=== PATIENT | female | born 1995 | race Caucasian/White ===

== ENCOUNTER 2019-08-16 13:18 | Emergency (ER) | payer OTHER ==
--- NOTE | 2019-08-16 14:08 | ED ---
HPI Chest Pain - History of Current Complaint Chief Complaint: EDVaginalBleeding Time Seen by Provider: 08/16/19 13:37 Pain Intensity: 1 - Allergy/Home Medications Allergies/Adverse Reactions: Allergies Allergy/AdvReac Type Severity Reaction Status Date / Time amoxicillin Allergy Rash Verified 08/16/19 13:23 Home Medications: Home Medications Vitamin TAB* 1 tab PO DAILY 08/16/19 [History Confirmed 08/16/19] PMH/Surg Hx/FS Hx/Imm Hx Endocrine/Hematology History: Reports: Hx Diabetes Sensory History: Denies: Hx Legally Blind, Hx Deafness Opthamlomology History: Denies: Hx Legally Blind EENT History: Denies: Hx Deafness Psychiatric History: Denies: Hx Eating Disorder - Surgical History Surgery Procedure, Year, and Place: Denies Infectious Disease History: No Infectious Disease History: Denies: Traveled Outside the [place] in Last 30 Days - Family History Known Family History: Negative: Cardiac Disease, Hypertension, Diabetes - Social History Alcohol Use: Daily Alcohol Amount: 6 shots of whiskey daily Hx Substance Use: Yes Substance Use Type: Reports: Marijuana Hx Tobacco Use: No Smoking Status (MU): Never Smoked Tobacco Review of Systems Positive: Chills, Skin Diaphoresis Positive: Chest Pain - Left back Positive: Shortness Of Breath Musculoskeletal: Other - Left arm pain, numbness/tingling Neurological: Other - Numbness/tingling of left arm All Other Systems Reviewed And Are Negative: Yes Physical Exam Triage Information Reviewed: Yes Vital Signs On Initial Exam: Initial Vitals Temp Pulse Resp BP Pulse Ox 98.7 F 77 16 136/85 100 08/16/19 13:20 08/16/19 13:20 08/16/19 13:20 08/16/19 13:20 08/16/19 13:20 Vital Signs Reviewed: Yes Procedures - Sedation Patient Received Moderate/Deep Sedation with Procedure: No Diagnostics - Vital Signs Vital Signs Temp Pulse Resp BP Pulse Ox 08/16/19 13:20 98.7 F 77 16 136/85 100 - Laboratory Lab Statement: Any lab studies that have been ordered have been reviewed, and results considered in the medical decision making process. Chest Pain Course/Dx - Course Course Of Treatment: This patient is a 50 year old M with a history of DM BIBA to ED via EMS with a chief complaint of chest pain that radiates down the left arm since 1250 today. Discharge ED - Discharge Plan Referrals: [facility] [Primary Care Provider] - - Attestation Statements Document Initiated by Scribe: Yes Documenting Scribe: Zenon Oliveira Provider For Whom Scribe is Documenting (Include Credential): Jose Hernandez MD Scribe Attestation: IZenon, scribed for Jose Hernandez MD on 08/16/19 at 1404.
[2019-08-16 14:11] LABS: BUN/Creatinine Ratio 18.6 (8-20); Calcium 9.5 mg/dL (8.6-10.3); EGFR African American 151.5 (>60); EGFR Non-African American 125.2 (>60); Potassium 3.7 mmol/L (3.5-5.0)
[2019-08-16 14:18] LABS: HCG Pregnancy 525.18 mIU/mL
[2019-08-16 14:51] LABS: ABS Basophils 0.1 10^3/ul (0-0.2); ABS Eosinophils 0.2 10^3/ul (0-0.6); ABS Lymphocytes 1.5 10^3/ul (1.0-4.8); ABS Monocytes 0.4 10^3/ul (0-0.8); ABS Neutrophils 2.3 10^3/ul (1.5-7.7); Eosinophil % 5.1 %; Hematocrit 39 % (35-47); Hemoglobin 13.1 g/dL (12.0-16.0); Lymphocyte % 33.4 %; Mean Corpuscular HGB Conc 34 g/dL (31-36); Mean Corpuscular Hemoglobin 31 pg (27-31); Mean Corpuscular Volume 92 fL (80-97); Mean Platelet Volume 8.5 fL (7.4-10.4); Nucleated Red Blood Cells % 0.1; Platelet Count 263 10^3/uL (150-450); Red Blood Count 4.22 10^6 /uL (3.70-4.87); Red Cell Distribution Width 13 % (10-15); White Blood Count 4.4 10^3/uL (3.5-10.8)
--- NOTE | 2019-08-16 15:30 | ED ---
GI/ HPI - HPI Summary HPI Summary: This patient is a 24 year old F who is 6 weeks 5 days by LMP presenting to ED with a chief complaint of vaginal bleeding with clots since 1 hour [employer]. This is her second ; her first was terminated by D& C (A1). Patient reports low back pain. She has not had an ultrasound for this before. Patient denies fever. The patient rates the pain 1/10 in severity. Symptoms aggravated by nothing. Symptoms alleviated by nothing. Patient denies any bleeding disorders in herself or her family. Patient is adopted, but her biological father reports he and his family are healthy and do not have bleeding disorders. She does not have contact with her biological mother. - History of Current Complaint Chief Complaint: EDVaginalBleeding Time Seen by Provider: 08/16/19 13:37 Stated Complaint: VAGINAL BLEEDING-6 WEEKS Hx Obtained From: Patient Onset/Duration: Started Hours Ago - 1 hour [employer], Still Present Timing: Constant Severity: Mild Current Severity: Mild Vaginal Bleeding Description: Clots Pain Intensity: 1 Associated Signs and Symptoms: Negative: Fever Additional Signs & Symptoms: Positive: Vaginal Bleeding Aggravating Factor(s): Nothing Alleviating Factor(s): Nothing - Allergy/Home Medications Allergies/Adverse Reactions: Allergies Allergy/AdvReac Type Severity Reaction Status Date / Time amoxicillin Allergy Rash Verified 08/16/19 13:23 Home Medications: Home Medications Vitamin TAB* 1 tab PO DAILY 08/16/19 [History Confirmed 08/16/19] PMH/Surg Hx/FS Hx/Imm Hx Endocrine/Hematology History: Denies: Hx Diabetes Cardiovascular History: Denies: Hx Hypercholesterolemia, Hx Hypertension Sensory History: Denies: Hx Legally Blind, Hx Deafness Opthamlomology History: Denies: Hx Legally Blind EENT History: Denies: Hx Deafness Psychiatric History: Denies: Hx Eating Disorder - Surgical History Surgery Procedure, Year, and Place: Denies - Immunization History Immunizations Up to Date: Yes Infectious Disease History: No Infectious Disease History: Denies: Traveled Outside the [place] in Last 30 Days - Family History Known Family History: Negative: Cardiac Disease, Hypertension, Diabetes - Social History Alcohol Use: None Hx Substance Use: No Substance Use Type: Reports: None Hx Tobacco Use: No Smoking Status (MU): Never Smoked Tobacco Review of Systems Negative: Fever Genitourinary: Other - Vaginal bleeding All Other Systems Reviewed And Are Negative: Yes Physical Exam - Summary Physical Exam Summary: Constitutional: Well-developed, Well-nourished, Alert. (-) Distressed Skin: Warm, Dry HENT: Normocephalic; Atraumatic Eyes: Conjunctiva normal Neck: Musculoskeletal ROM normal neck. (-) JVD, (-) Stridor, (-) Tracheal deviation Cardio: Rhythm regular, rate normal, Heart sounds normal; Intact distal pulses; The pedal pulses are 2+ and symmetric. Radial pulses are 2+ and symmetric. Pulmonary/Chest wall: Effort normal. (-) Respiratory distress, (-) Wheezes, (-) Rales Abd: Soft, (-) tenderness, (-) Distension, (-) Guarding, (-) Rebound Musculoskeletal: (-) Edema Neuro: Alert, Oriented x3 Psych: Mood and affect Normal Triage Information Reviewed: Yes Vital Signs On Initial Exam: Initial Vitals Temp Pulse Resp BP Pulse Ox 98.7 F 77 16 136/85 100 08/16/19 13:20 08/16/19 13:20 08/16/19 13:20 08/16/19 13:20 08/16/19 13:20 Vital Signs Reviewed: Yes Procedures - Sedation Patient Received Moderate/Deep Sedation with Procedure: No Diagnostics - Vital Signs Vital Signs Temp Pulse Resp BP Pulse Ox 08/16/19 13:20 98.7 F 77 16 136/85 100 - Laboratory Lab Results: Lab Results 08/16/19 08/16/19 Range/Units 13:48 13:48 WBC 4.4 (3.5-10.8) 10^3/uL RBC 4.22 (3.70-4.87) 10^6 /uL Hgb 13.1 (12.0-16.0) g/dL Hct 39 (35-47) % MCV 92 (80-97) fL MCH 31 (27-31) pg MCHC 34 (31-36) g/dL RDW 13 (10-15) % Plt Count 263 (150-450) 10^3/uL MPV 8.5 (7.4-10.4) fL Neut % (Auto) 52.2 % Lymph % (Auto) 33.4 % [place] % (Auto) 8.1 % Eos % (Auto) 5.1 % Baso % (Auto) 1.2 % Absolute Neuts (auto) 2.3 (1.5-7.7) 10^3/ul Absolute Lymphs (auto) 1.5 (1.0-4.8) 10^3/ul Absolute Monos (auto) 0.4 (0-0.8) 10^3/ul Absolute Eos (auto) 0.2 (0-0.6) 10^3/ul Absolute Basos (auto) 0.1 (0-0.2) 10^3/ul Absolute Nucleated RBC 0.0 10^3/ul Nucleated RBC % 0.1 Sodium 138 (135-145) mmol/L Potassium 3.7 (3.5-5.0) mmol/L Chloride 108 (101-111) mmol/L Carbon Dioxide 24 (22-32) mmol/L Anion Gap 6 (2-11) mmol/L BUN 11 (6-24) mg/dL Creatinine 0.59 (0.51-0.95) mg/dL Est GFR ( Amer) 151.5 (>60) Est GFR (Non-Af Amer) 125.2 (>60) BUN/Creatinine Ratio 18.6 (8-20) Glucose 86 (70-100) mg/dL Calcium 9.5 (8.6-10.3) mg/dL Beta HCG, Quant 525.18 mIU/mL Result Diagrams: 08/16/19 13:48 08/16/19 13:48 Lab Statement: Any lab studies that have been ordered have been reviewed, and results considered in the medical decision making process. - Ultrasound Transvaginal US Ultrasound Interpretation Completed By: Radiologist Summary of Ultrasound Findings: THERE IS FLUID WITHIN THE ENDOMETRIAL CAVITY ALTHOUGH NO INTRAUTERINE GESTATIONAL SAC IS SEEN. THEREFORE DIFFERENTIAL DIAGNOSIS WOULD INCLUDE EARLY INTRAUTERINE , SPONTANEOUS MISCARRIAGE OR LESS LIKELY ECTOPIC . RECOMMEND CORRELATION WITH QUANTITATIVE BETA- HCG. Dr. Hernandez has reviewed this radiology report. Re-Evaluation - Re-Evaluation First Eval Re-Evaluation Time: 17:00 Comment: Discussed results with patient. Patient will be discharged home with dx of threatened miscarriage. Patient understands and agrees with this plan. GIGU Course/Dx - Course Course Of Treatment: This patient is a 24 year old F who is 6 weeks 5 days by LMP presenting to ED with a chief complaint of vaginal bleeding since 1 hour [employer]. Blood work revealed beta HCG 525.18 without any other abnormality. Transvaginal US revealed: THERE IS FLUID WITHIN THE ENDOMETRIAL CAVITY ALTHOUGH NO INTRAUTERINE GESTATIONAL SAC IS SEEN. THEREFORE DIFFERENTIAL DIAGNOSIS WOULD INCLUDE EARLY INTRAUTERINE , SPONTANEOUS MISCARRIAGE OR LESS LIKELY ECTOPIC . RECOMMEND CORRELATION WITH QUANTITATIVE BETA- HCG. Type and screen revealed A positive, negative. I discussed these findings with the patient. Patient will be discharged home with dx of threatened miscarriage. Patient understands and agrees with this plan. - Diagnoses Provider Diagnoses: Threatened miscarriage Discharge ED - Sign-Out/Discharge Documenting (check all that apply): Patient Departure - Discharge - Discharge Plan Condition: Stable Disposition: HOME Patient Education Materials: Threatened Miscarriage (ED) Referrals: Eloy Solis MD [Medical Doctor] - Additional Instructions: Please follow up with your primary care provider and your interior design teacher/OB in 1-3 days. PLEASE RETURN TO THE ER FOR WORSENING OR CHANGING SYMPTOMS. - Billing Disposition and Condition Condition: STABLE Disposition: Home - Attestation Statements Document Initiated by Scribe: Yes Documenting Scribe: Zenon Oliveira Provider For Whom Maxwell is Documenting (Include Credential): Jose Hernandez MD Scribe Attestation: I, Zenon Oliveira, scribed for Jose Hernandez MD on 08/16/19 at 1908. Scribe Documentation Reviewed: Yes Provider Attestation: The documentation as recorded by the Zenon jj accurately reflects the service I personally performed and the decisions made by me, Jose Hernandez MD Status of Scribe Document: Viewed
[2019-08-16 17:19] VITALS: BP 101/69
== END 2019-08-16 17:20 | disposition home or self-care (01) ==
LOC: ED 13:18
DX: O20.0 Threatened abortion (principal); Z3A.00 Weeks of gestation of pregnancy not specified; Z88.0 Allergy status to penicillin
CPT/HCPCS: 36415; 76830; 80048; 84702; 85025; 86850; 86900; 86901; 99282